=== PATIENT | female | born 1975 | race African-American/Black ===

== ENCOUNTER 2023-06-06 15:10 | Inpatient (IN) | payer OTHER ==
[2023-06-06 16:36] VITALS: BMI 34.3
[2023-06-06] MEDS ORDERED: DICYCLOMINE HCL 10 MG CAPSULE PO PRN (18:17)
[2023-06-06] MEDS ORDERED: METHOCARBAMOL 500 MG TABLET PO PRN (18:17)
[2023-06-06] MEDS ORDERED: NICOTINE POLACRILEX 2 MG GUM BUC PRN (18:17)
[2023-06-06] MEDS ORDERED: BENZOCAINE/MENTHOL (CHLORASEPTIC ) LOZENGE MM PRN (18:17)
[2023-06-06] MEDS ORDERED: hydrOXYzine PAMOATE 25 MG CAPSULE (FP) PO PRN (18:17)
[2023-06-06] MEDS ORDERED: ONDANSETRON *ODT* 4 MG TABLET SL PRN (18:17)
[2023-06-06] MEDS ORDERED: guaiFENesin 600 MG TABLET.ER (FP) PO PRN (18:17)
[2023-06-06] MEDS ORDERED: MAG HYDROX/AL HYDROX/SIMETH 30 ML UNIT-DOSE CUP PO PRN (18:17)
[2023-06-06] MEDS ORDERED: BENZONATATE 200 MG CAPSULE PO PRN (18:17)
[2023-06-06] MEDS ORDERED: BISMUTH SUBSALICYLATE 524 MG/30 ML PO PRN (18:17)
[2023-06-06] MEDS ORDERED: POLYETHYLENE GLYCOL (HEALTHYLAX) 3350 17 GM PACKET PO PRN (18:17)
[2023-06-06] MEDS ORDERED: IBUPROFEN 400 MG TABLET (FP) PO PRN (18:17)
[2023-06-06] MEDS ORDERED: P-EPHED 60MG/TRIPROLIDI 2.5MG TABLET PO PRN (18:17)
[2023-06-06] MEDS ORDERED: LOPERAMIDE HCL 2 MG CAPSULE PO PRN (18:17)
[2023-06-06] MEDS: ACETAMINOPHEN 325 MG TABLET (FP) PO PRN (20:24)
[2023-06-06] MEDS ORDERED: ALBUTEROL SO4 HFA INHALER IH PRN (20:28)
[2023-06-06] MEDS: MELATONIN 5 MG TABLETS PO SCH (22:22)
[2023-06-06] MEDS: THIAMINE HCL 100 MG TABLET (FP) PO SCH (22:22)
[2023-06-06] MEDS: CARBAMIDE PEROXIDE 6.5% OTIC 15 ML BOTTLE AU SCH (23:11)
[2023-06-07] MEDS: metFORMIN HCL 500 MG TABLET (FP) PO SCH (06:55)
[2023-06-07] MEDS: PRENATAL VITAMINS W/ FOLIC ACID TABLET (FP) PO SCH (09:50)
[2023-06-07] MEDS: IBUPROFEN 600 MG TABLET (FP) PO PRN (10:05)
[2023-06-07 12:49] LABS: POTASSIUM 3.9 mmol/L (3.5-5.1)
[2023-06-07 12:51] LABS: BLOOD UREA NITROGEN 8.9 mg/dL (7-18); CALCIUM 8.6 mg/dL (8.5-10.1)
[2023-06-07 12:54] LABS: CREATININE 0.6 mg/dL (0.55-1.3)
[2023-06-07 12:55] LABS: HEMATOCRIT 38.3 % (32.4-45.2); HEMOGLOBIN 12.6 GM/dL (10.7-15.3); MCH 31.5 pg (25.7-33.7); MCHC 32.9 g/dl (32.0-36.0); MEAN CELL VOLUME 95.8 fl (80-96); MEAN PLT VOLUME 6.9 fl (7.5-11.1); PLATELET COUNT 315 10^3/uL (134-434); RDW 13.5 % (11.6-15.6); WHITE BLOOD COUNT 6.4 K/mm3 (4.0-10.0)
[2023-06-07 12:56] LABS: BILIRUBIN,TOTAL 0.3 mg/dL (0.2-1); TOT PROT 6.3 g/dl (6.4-8.2)
[2023-06-07] MEDS: MAGNESIUM HYDROX 2400MG/30ML ORAL SUSPENSION 30 ML CUP PO PRN (15:24)
[2023-06-07] MEDS: QUEtiapine FUMARATE 100 MG TABLET (FP) PO SCH (21:17)
[2023-06-08] MEDS ORDERED: chlordiazePOXIDE HCL 25 MG CAPSULE PO PRN (10:20)
[2023-06-08] MEDS: chlordiazePOXIDE HCL 25 MG CAPSULE PO SCH (10:28)
[2023-06-10] MEDS: chlordiazePOXIDE HCL 25 MG CAPSULE PO SCH (05:44)
[2023-06-10 09:18] VITALS: BP 123/77; PULSE 64; RESP 18; TEMP 97.7
[2023-06-11] MEDS ORDERED: chlordiazePOXIDE HCL 10 MG CAPSULE PO PRN
[2023-06-11] MEDS ORDERED: chlordiazePOXIDE HCL 10 MG CAPSULE PO SCH (05:00)
[2023-06-12] MEDS ORDERED: chlordiazePOXIDE HCL 10 MG CAPSULE PO SCH (05:00)
[2023-06-13] MEDS ORDERED: chlordiazePOXIDE HCL 10 MG CAPSULE PO ONE (05:00)
== END 2023-06-10 11:38 | disposition home or self-care (01) | DRG 774 ==
LOC: YASAS 15:10 → Y3N 20:04
PROVIDERS: ADMIT Allergy & Immunology; ATTEND Family Medicine Addiction Medicine
PROC: HZ2ZZZZ Detoxification Services for Substance Abuse Treatment (ICD-10-PCS; principal; 2023-06-06)
DX: F10.230 Alcohol dependence with withdrawal, uncomplicated (principal); F14.20 Cocaine dependence, uncomplicated; F17.210 Nicotine dependence, cigarettes, uncomplicated; F25.9 Schizoaffective disorder, unspecified; F31.9 Bipolar disorder, unspecified; E11.9 Type 2 diabetes mellitus without complications; Z79.84 Long term (current) use of oral hypoglycemic drugs; M25.532 Pain in left wrist; R76.8 Other specified abnormal immunological findings in serum; Z86.19 Personal history of other infectious and parasitic diseases; Z59.01 Sheltered homelessness; Z56.0 Unemployment, unspecified
CPT/HCPCS: 0241U-QW; 36415; 73110-TC-LT-FY; 73130-TC-LT-FY; 80053; 80305; 82962; 85027; 86593; 86780; 93005; 93010